=== PATIENT | female | born 1955 | race Caucasian/White ===

== ENCOUNTER 2017-09-28 06:41 | Inpatient (IN) ==
--- NOTE | 2017-09-27 21:30 | Discharge Summary ---
<MaryMini E - Last Filed: 09/28/17 08:11> Date of Encounter: 09/28/17 - Discharge Diagnosis (1) Status post total hip replacement, right Priority: Primary Status: Acute (2) Arthritis of right hip Priority: Primary Status: Chronic (3) Anxiety Priority: Secondary Status: Chronic (4) History of skin cancer Priority: Secondary Status: Chronic (5) GERD (gastroesophageal reflux disease) Priority: Secondary Status: Chronic Qualifiers: Esophagitis presence: esophagitis presence not specified Qualified Code(s) : K21.9 - Gastro-esophageal reflux disease without esophagitis (6) Tobacco dependence Priority: Secondary Status: Chronic - Hospital Course Hospital course: Ms. Olvera is a 62 year old female - Time Spent with Patient Total time spent providing and/or coordinating discharge services: - Discharge Medications Home Medications: OxyCODONE Immed Rel [Roxicodone 5 MG] 5 mg PO Q6HR PRN 7 Days #28 tablet [Rx] Amitriptyline HCl 75 mg PO HS 09/28/17 [History] Apixaban [Eliquis] 2.5 mg PO BID 35 Days #70 tablet 09/28/17 [Rx] Cholecalciferol (D-3) [Vitamin D] 1,000 unit PO HS 09/28/17 [History] Duloxetine HCl [Cymbalta] 60 mg PO HS 09/28/17 [History] Naproxen [EC-Naprosyn] 500 mg PO Q12H PRN 09/28/17 [History] Omeprazole [PriLOSEC] 20 mg PO HS 09/28/17 [History] Potassium Gluconate 99 mg PO HS 09/28/17 [History] Allergies/Adverse Reactions: 3 Allergy/AdvReac Type Severity Reaction Status Date / Time aspirin AdvReac See Verified 09/28/17 07:31 Comments Primary care physician: Deny Javed MD - Patient Status Disposition: Home, Self-Care Condition: Good - Discharge Instructions Follow Up With: Deny Javed MD [Primary Care Provider] - Additional Instructions: Discharge Instructions: Total Hip Replacement Please call [facility] ([phone]), your Primary Care Physician, or report to the Emergency Room if you have any of the following symptoms: Nausea, vomiting, fever greater that 101.5, swelling, chest pain, shortness of breath, increased pain/redness/drainage/odor for your incision site, numbness/ tingling, or any other concerning symptoms. ACTIVITY:Weight-bearing as tolerated for 8 weeks with hip dislocation precautions that physical therapy taught you. You may progress as tolerated under the guidance of your physical therapist. You do not need to sleep with a pillow between your legs. You can also seep on the operative side or on your stomach. MEDICATIONS: Upon discharge resume your home medications. Take all the medications as prescribed. Take a stool softener if taking narcotic pain medications. Stool softeners are only effective if you drink enough fluids. Drink 6-8 glass of water or fluids a day, unless this is not allowed for another health problem. Despite using stool softeners, if you haven't had a bowel movement in 3 days, please switch to a gentle laxative. Gentle laxatives are sold over the counter. You should have a bowel movement within 24 hours, if not call the office. You will be discharged from the hospital with a prescription for pain medication. You are encouraged to decrease the use of narcotic pain medication as tolerated. Should you require a refill, please call the office. [facility] prescribes narcotic pain medication for only 4-6 weeks after surgery. If you require pain medication beyond this time period, you may be referred to your Primary Care Physician or to the Pain Clinic for further evaluation. Plan ahead for refills on pain medication as many narcotics either need to be picked up at the office or mailed. It is best to call 48-72 hours in advance of needing a prescription refill so you don't run out of medication. To help control the post-operative pain, you may take NSAIDs (Aleve,Advil, Motrin, ibuprofen, naprosyn) or Tylenol as prescribed on the bottle in addition to the pain medication. ANTICOAGULATION (blood thinners): Continue your Aspirin, Lovenox or Coumadin as prescribed to help prevent a blood clot in the leg or in the lungs. As long as your incision remains dry and you tolerate the NSAIDs (Aleve, Advil, Motrin, Ibuprofen, Naprosyn), it is OK to use the NSAIDS while you are taking your anticoagulation medication. Should your incision start to drain, stop the NSAID and contact our office. Common symptoms of blood clot in the legs include: localized pain, swelling, calf tenderness, redness or discoloration of the skin. Blood clot in the lung symptoms include: shortness of breath, rapid pulse, sweating, and chest pain that worsens with deep breathing, coughing up blood, lightheadedness, feelings of anxiety. If you experience any of these symptoms notify your physician immediately, go to the emergency room, or if having trouble breathing, call 911. WOUND CARE: Leave the dressing on for 7 to 10days. You may change the dressing if it is saturated greater than 50%. Do not get the dressing wet at anytime. Wash your hands with antibacterial soap, rinse and dry prior to any wound care. If you have maria del carmen the visiting nurse or rehab facility can remove the stapes 10-14 days after surgery and place steri-strips across the wound. Leave the steri-strips in place until they fall off on their own. You may let water from the shower run on top of the steri-strips. If you do not have a visiting nurse or rehab facility, you will need to return to the office at 10-14 days for the maria del carmen to be removed. If you have itching or redness around the dressing call the office. FOLLOW-UP: Please follow up with your surgeon in the orthopedic clinic in 6 weeks from the day of surgery. If you have maria del carmen that need to be removed, you will need to come back to the office in 10-14 days from the day of surgery. <Anthony Perez - Last Filed: 09/30/17 11:46> Orders not resulted at time of discharge: Pending orders 09/28/17 01:00 XR hip complete RT [XR] Routine Hemoglobin and Hematocrit [HEME] Routine Date of Encounter: 09/30/17 Time of Encounter: 11:46 - Discharge Diagnosis (1) Anxiety Priority: Secondary Status: Chronic (2) Arthritis of right hip Priority: Primary Status: Chronic (3) GERD (gastroesophageal reflux disease) Priority: Secondary Status: Chronic Qualifiers: Esophagitis presence: esophagitis presence not specified Qualified Code(s) : K21.9 - Gastro-esophageal reflux disease without esophagitis (4) History of skin cancer Priority: Secondary Status: Chronic (5) Status post total hip replacement, right Priority: Primary Status: Acute (6) Tobacco dependence Priority: Secondary Status: Chronic (7) Acute blood loss anemia Priority: Primary Status: Acute - Hospital Course Hospital course: Ms. Olvera is a 62 year old female Status post right total hip replacement The patient had an uneventful postoperative course. They received antibiotics and physical therapy and were discharged in stable condition. There will follow -up in the office in 2 weeks. - Time Spent with Patient Total time spent providing and/or coordinating discharge services: Primary care physician: Deny Javed MD - Patient Status Functional capacity at discharge: uses cane/walker Overall status at discharge: patient is progressing back to baseline
--- NOTE | 2017-09-27 21:32 | Physician Discharge Referral ---
Home Health/Hosp Referral Info Transfer to: Home Health Attending Provider: Dr Perez - Diagnosis (1) Status post total hip replacement, right Priority: Primary Status: Acute (2) Arthritis of right hip Priority: Primary Status: Chronic (3) Anxiety Priority: Secondary Status: Chronic (4) History of skin cancer Priority: Secondary Status: Chronic (5) GERD (gastroesophageal reflux disease) Priority: Secondary Status: Chronic (6) Tobacco dependence Priority: Secondary Status: Chronic - Respiratory Orders Smoking Cessation: Smoking cessation has been advised. For more information, call the [place] Tobacco Quit Line at 7-940-JDZN-NOW. - Dressing/Wound Care Site: right hip Type of Dressing/Treatments w/Frequency: Opsite placed. Keep dressing intact until first follow up appointment. If greater than 50% saturated, notify office, remove dressing and place appropriate dressing back in place. Leave Zipline intact. Opsite dressing is water resistant, not water-proof. OK to shower, but do not get dressing wet. - Diet/Nutrition Diet/Nutrition Orders: Regular - Activity Activity Orders: Up ad jaren, Ambulate, Chair, Walker Activity: List: Total Hip replacement Precautions Apply cold therapy 3-6x/day for 20 minutes at a time. Encourage ambulation throughout the day and incentive spirometer 10x/hour. Elevate affected extremity as tolerated. Brace: Wear hip abduction pillow when laying/sleeping - Services Needed Following services are medically necessary services: Nursing, Home Health Aide, Physical Therapy, Occupational Therapy - Transfer Medications Prescriptions: OxyCODONE Immed Rel [Roxicodone 5 MG] 5 mg PO Q6HR PRN 7 Days #28 tablet PRN Reason: Severe Pain Home Medications: Cyclobenzaprine [Flexeril] 10 mg PO TID #15 tablet 03/17/17 [Rx] Meloxicam 03/17/17 [History] Omeprazole 03/17/17 [History] Potassium 03/17/17 [History] methylPREDNISolone [Medrol] 4 mg PO TAPER #21 tablet 03/17/17 [Rx] OxyCODONE Immed Rel [Roxicodone 5 MG] 5 mg PO Q6HR PRN 7 Days #28 tablet [Rx] Allergies/Adverse Reactions: 3 Allergy/AdvReac Type Severity Reaction Status Date / Time aspirin Allergy See Verified 09/18/17 15:29 Comments Certification: Further, I certify that my clinical findings support that this patient is homebound (i.e. absences from home require considerable and taxing effort and are for medical reasons or mandaen services or infrequently or short duration when for other reasons) because: Homebound Reason: Post-surgery restriction and or conditions limit ability to leave home Attestation: My signature below is to certify that this patient is under my care and that I, or nurse practitioner, or a physician fire control assistant working with me, has a face-to- face encounter with this patient.
--- NOTE | 2017-09-28 06:49 | History & Physical Report ---
Date of Encounter: 09/28/17 Time of Encounter: 06:49 24 Hour HP Update - Instructions Instructions: If the History and Physical is less than 30 days old and was completed prior to A.M. admission and or procedure and has NOT been updated on calendar day of procedure please complete this update prior to performing procedure. - Update Patient reports changes in Medical Condition: No Changes in examination, assessment, or condition: No Changes in Medication: No Preop tests/diagnostics Reviewed: Yes Surgery Remains Indicated: Yes Consent for Planned Operative Procedure(s) Verified: Yes - Pre-Operative Checklist Preoperative Checklist Indicated: No Prophylactic Antibiotic Ordered: Yes Is VTE Prophylaxis Indicated?: Yes
[2017-09-28] MEDS ORDERED: CeFAZolin Syr 2,000MG/20 ML 2,000 MG/20 ML SYRINGE IVPB ONE (07:03)
[2017-09-28] MEDS ORDERED: Albuterol 2.5 MG/3 ML NEBULIZER IH ONE (07:03)
[2017-09-28] MEDS ORDERED: Lidocaine -MPF 1% 2 ML VIAL ID ONE (07:03)
[2017-09-28] MEDS ORDERED: Acetaminophen IV 1,000 MG/100 ML INFUS..BTL IVPB ONE (07:04)
--- NOTE | 2017-09-28 07:09 | Anesthesia Evaluation PreOp ---
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) Other Medical History: Denies Any Significant HX, GERD (well controlled) Anesthesia History: No Prior Anesthetic Complications, Past Anesthesia (R neck gland removal, skin ca) Alcohol Use: none Drug use: none Medications and Allergies Cyclobenzaprine [Flexeril] 10 mg PO TID #15 tablet 03/17/17 [Rx] Meloxicam 03/17/17 [History] Omeprazole 03/17/17 [History] Potassium 03/17/17 [History] methylPREDNISolone [Medrol] 4 mg PO TAPER #21 tablet 03/17/17 [Rx] OxyCODONE Immed Rel [Roxicodone 5 MG] 5 mg PO Q6HR PRN 7 Days #28 tablet [Rx] 3 Allergy/AdvReac Type Severity Reaction Status Date / Time aspirin Allergy See Verified 09/18/17 15:29 Comments - Meds/Allergy Pre-op Review Medications Reviewed: Yes Allergies Reviewed: Yes Beta Blockers on Current Med List: No Anesthesia Results - Labs Laboratory Tests 09/18/17 09/18/17 09/18/17 15:46 15:46 15:46 WBC 7.7 Hgb 11.8 Hct 37.6 Plt Count 307 PT 11.1 INR 1.0 APTT 31.0 Sodium 139 Potassium 4.2 Chloride 109 H Carbon Dioxide 25 BUN 14 Creatinine 0.73 - Imaging EKG: report reviewed (SR) Anesthesia Exam O2 Sat Height 1.57 m Height 1.57 m Weight 70.76 kg Weight 70.76 kg O2 Sat by Pulse Oximetry 94 Vital Signs Temp Pulse Resp BP Pulse Ox 98.5 F 83 18 123/76 94 09/28/17 07:04 09/28/17 07:04 09/28/17 07:04 09/28/17 07:04 09/28/17 07:04 Height: 62 Weight: 156lbs NPO (# of Hours): >8 Pain Scale: 8 - HEENT Pupil (Motor): Pupils equal, EOMI Mallampati: III Teeth: Poor dentition Oral Opening: Greater than 3 - 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
[2017-09-28] MEDS ORDERED: Ringers Solution, Lactated 1,000 ML IVC SCH ×2 (07:15→11:07)
[2017-09-28] MEDS ORDERED: Ethanol\\Acetic Acid\\Na Ace\\Ben 1,000 ML IRRIG.SOLN IR ONE (07:18)
[2017-09-28] MEDS ORDERED: Morphine Sulfate/PF 5mg/10mL Vial ONE (08:02)
[2017-09-28] MEDS ORDERED: Lidocaine -MPF 2% 2 ML VIAL ONE ×2 (08:20→09:34)
--- NOTE | 2017-09-28 08:47 | Anesthesia Procedures ---
Date of Encounter: 09/28/17 Time of Encounter: 08:45 Procedures: Anesthesia - Epidural/Spinal Patient ID/Chart reviewed: Yes Patient examined: Yes Consent Obtained: Yes Supplemental Oxygen: Nasal Cannula Supplemental Oxygen Rate (L/min): 3 Sedation: Versed (mg): 4 Site Prep: Aseptic Technique, Sterile prep and drape, Povidone-Iodine 1% Patient position: upright Local Anesthetic: Lidocaine 1% Amount of Local Anesthetic used: 3 Interspace Used: L4-L5 Blood: No CSF: Yes Paresthesia: No Spinal Needle Gauge: 25 Spinal Dose: 2mL 0.5% bupi + 250mcg PF morphine + 15mcg fentany Procedure: successful on 1st attempt Vitals + FHT's: please see Bibi TELLEZ's electronic record for VS entry
[2017-09-28] MEDS ORDERED: *HR* PHENYLEPHRINE 1,000 MCG/10 ML SYRINGE IVP ONE ×2 (09:06→10:00)
[2017-09-28] MEDS ORDERED: *HR* Propofol 200 MG/20 ML VIAL IVP ONE ×2 (09:30→09:34)
[2017-09-28] MEDS ORDERED: *HR* Midazolam HCl 2 MG/2 ML VIAL ONE (09:34)
[2017-09-28] MEDS ORDERED: *HR* FentaNYL (PF) 100 MCG/2 ML VIAL ONE (09:34)
[2017-09-28] MEDS ORDERED: Ondansetron 4 MG/2 ML VIAL IVP PRN ×2 (09:38→11:07)
--- NOTE | 2017-09-28 09:44 | Orthopedic Operative Note ---
Date of procedure: 09/28/17 Pre-op diagnosis: Right hip arthritis Post-op diagnosis: same Procedure: Procedure: Right Total Hip Replacment robotic-assisted Estimated blood loss: 200 cc Hardware: Metal and polyethylene replacement. Mallie DM Cup: 56 cup Femoral size 6 stem Head: +12 head with Radha Procedural Notes: Grade 4 arthritic changes femoral head acetabular socket, procedure performed with robotic assistance. 5 mm shorter preoperatively on operative leg measured by CT scan Operative procedure: The patient was brought to the operating room and placed on the operating room table. After general anesthesia was administered the patient was placed in the lateral decubitus position with the operative leg up. All pressure points were padded appropriately and the head was stabilized in the neutral position. The operative extremity was prepped and draped in the sterile surgical fashion patient received IV antibiotic prior to skin incision. 3 Steinmann pins were placed in the iliac crest 3 cm proximal to the anterior superior iliac spine this was for the robotic-assisted sensor. This was done through a small 2 cm incision. A standard posterior approach is made to the operative hip, the incision was made through the skin and subcutaneous tissue hemostasis was obtained with Bovie cautery. Using careful sharp dissection the fascia was identified and incised exposing the external rotators. The femoral checkpoint was placed leg length was measured at this time utilizing robotic assistance. The external rotators were released off the greater trochanter and tagged with # 2 FiberWire suture. The capsule was T'd open and the hip was brought into internal rotation. Patient noted to have grade 4 arthritic changes femoral head. The femoral neck cut was made at the appropriate level roughly 10 mm proximal to the lesser trochanter aced on preoperative templating. An anterior capsulotomy was performed for the anterior retractor. Soft tissues removed from the acetabulum. Patient noted to have grade 4 arthritic changes acetabulum. The acetabulum checkpoint was placed confirmed. The acetabulum was then mapped with robotic assistance. Based on the preoperative plan the acetabulum was reamed in one step with a 55 reamer. The 56 acetabulum was impacted with robotic assistance and 40 degrees of abduction and 11 degrees of anteversion. The hip was brought back in to internal rotation and prepared with the box spring frame builder followed by the canal finder followed by the reaming process to a size 6/ 7 broaching process in 20 degrees anteversion. It was broached up to the appropriate size 6. Trial reduction revealed leg lengths close to normal. The femoral implant was impacted in place in 20 degrees of anteversion. Trial reduction found the hip to be stable with 12 head and Radah. The trials were removed and the real implants were impacted in place. The hip was reduced, patient had robotic confirmed leg length of 1 mm longer than the contralateral side. The hip had excellent stability with forward flexion to 90 degrees adduction of 30 degrees and internal rotation of 60 degrees. The hip had no shuck. The hips after 2 minutes with a antibacterial solution. It was irrigated out with 2 L of pulse irrigation. The checkpoints were removed, Steinmann pins were removed. The hip was closed by the PA. The deep tissue was irrigated and closed deep with #1 PDS suture superficially with 0 PDS suture and skin was closed with Dermabond and zip tie. The patient was placed in a sterile dressing and abduction pillow. The patient was extubated and transferred to the recovery room in stable condition. Anesthesia: GETA Surgeon: Anthony Perez Was there an malt specifications control assistant present: No Estimated blood loss (cc): 200 Condition: stable Disposition: PACU
[2017-09-28] MEDS ORDERED: EPHEDrine 50 MG/ML VIAL ONE (09:45)
[2017-09-28] MEDS ORDERED: *HR* HYDROmorphone (PF) 1 MG/ML SYRINGE IVP PRN (10:34)
[2017-09-28] MEDS ORDERED: *HR* Morphine 2 MG/ML SYRINGE IVP PRN ×2 (10:34→11:07)
[2017-09-28] MEDS ORDERED: *HR* OxyCODONE/APAP 10/325 TABLET PO PRN ×2 (10:37→11:07)
[2017-09-28] MEDS ORDERED: *HR* OxyCODONE/APAP 5/325 TABLET PO PRN ×3 (10:37→11:07)
[2017-09-28 10:38] LABS: Hematocrit 37.3 % (35.3-44.9); Hemoglobin 12.1 g/dL (11.5-15.4)
--- NOTE | 2017-09-28 10:41 | Anesthesia Evaluation Post Op ---
Date of Encounter: 09/28/17 Time of Encounter: 10:41 - Vital Signs Vital Signs: vss - Lungs Lungs: Clear Ascult./Percussion - Airway Airway: Non-obstructed - Cardiovascular Baseline Rhythm - Mental Status Mental Status: Alert & Oriented, Answers Appropriately - Pain Pain Scale used: Yogi (Faces) - Nausea Vomiting Nausea Vomiting: Not Present - Hydration Hydration: Ice chips - Discharge PostOp Status: Transfer Patient to floor
[2017-09-28] MEDS ORDERED: traMADol 50 MG TABLET PO PRN (11:07)
[2017-09-28] MEDS ORDERED: MOM Conc 10 ML UD.LIQ PO PRN (11:07)
[2017-09-28] MEDS ORDERED: Temazepam 15 MG CAPSULE PO PRN (11:07)
[2017-09-28] MEDS ORDERED: Sennosides 8.6 MG TABLET PO PRN (11:07)
[2017-09-28] MEDS ORDERED: Naloxone 0.4 MG/ML INJ IVP PRN (11:07)
[2017-09-28] MEDS: Multivit/Ca/Min/Fe/FA 1 TAB TABLET PO SCH (15:03)
[2017-09-28] MEDS: Ascorbic Acid 500 MG TABLET PO SCH ×2 (15:04→18:04)
[2017-09-28] MEDS ORDERED: *HR* Nalbuphine 20 MG/ML AMPUL IVP PRN (15:29)
[2017-09-28] MEDS: ceFAZolin 2,000 MG in D5% in Water 100 ML IVPB SCH ×2 (16:25→23:52)
[2017-09-28] MEDS ORDERED: *HR* Enoxaparin 30 MG/0.3 ML SYRINGE SQ SCH (18:00)
[2017-09-28] MEDS: *HR* Enoxaparin 30 MG/0.3 ML SYRINGE SQ SCH (18:02)
[2017-09-28] MEDS ORDERED: CloNIDine Patch 0.1 MG PATCH (WEEKLY) TD ONE (19:13)
[2017-09-28] MEDS: Cholecalciferol (D-3) 1,000 UNIT TABLET PO SCH (21:09)
[2017-09-28] MEDS: (Potassium Gluconate [Potassium Gluconate] 99 MG) PO SCH (21:10)
[2017-09-29 05:36] LABS: Hematocrit 30.3 % (35.3-44.9)
[2017-09-29 05:41] LABS: Hemoglobin 9.7 g/dL (11.5-15.4)
[2017-09-29 05:54] LABS: BUN/Creatinine Ratio 18 (6-26); Blood Urea Nitrogen 14 mg/dL (8-23); Calcium 8.5 mg/dL (8.6-10.3); Carbon Dioxide 25 mEq/L (23-29); Chloride 101 mEq/L (98-107); Glucose 113 mg/dL (70-105); Osmolality,Calculated 273 (280-300); Potassium 4.3 mEq/L (3.5-5.1); Sodium 131 mEq/L (136-145); eGFR For African Americans > 60 (> 60); eGFR For Non-African Americans > 60 (> 60)
--- NOTE | 2017-09-29 06:34 | Orthopedics Progress Note ---
Date of Encounter: 09/29/17 Time of Encounter: 06:34 - Assessment and Plan (1) Anxiety Current Visit: No Status: Chronic (2) Arthritis of right hip Current Visit: No Status: Chronic (3) GERD (gastroesophageal reflux disease) Current Visit: No Status: Chronic Qualifiers: Esophagitis presence: esophagitis presence not specified Qualified Code(s) : K21.9 - Gastro-esophageal reflux disease without esophagitis (4) History of skin cancer Current Visit: No Status: Chronic (5) Status post total hip replacement, right Current Visit: No Status: Acute (6) Tobacco dependence Current Visit: No Status: Chronic Subjective Interval history: Patient was seen this morning doing well without complaints. Afebrile vital signs stable. Operative extremity: Neurovascularly intact Dressing clean dry and intact Calves nontender Assessment and plan: Continue with postoperative care Hematocrit 30 Objective Vital signs: Vital Signs Temp Pulse Resp BP Pulse Ox 09/29/17 02:43 98.6 F 76 18 118/67 95 09/29/17 00:10 98.2 F 78 18 105/60 95 09/28/17 18:38 99.0 F 81 18 110/66 94 09/28/17 15:26 98.2 F 83 16 111/56 97 09/28/17 15:13 98.2 F 82 16 99/48 92 09/28/17 12:41 93 09/28/17 12:02 83 94/55 93 09/28/17 11:33 97.2 F L 72 14 115/79 97 09/28/17 11:32 97.1 F L 81 16 111/66 93 09/28/17 11:18 96 09/28/17 10:37 97.4 F L 72 18 116/48 96 09/28/17 10:26 72 18 112/64 94 09/28/17 10:16 72 16 92/63 93 09/28/17 10:06 97.9 F 74 16 95/53 93 09/28/17 08:49 70 16 95/53 97 09/28/17 08:46 71 16 102/57 97 09/28/17 08:43 72 16 101/51 96 09/28/17 08:40 71 16 108/58 96 09/28/17 08:37 74 16 114/51 94 09/28/17 08:34 72 16 116/58 95 09/28/17 08:31 72 16 119/64 95 09/28/17 08:28 73 14 122/64 95 09/28/17 08:25 71 16 119/57 94 09/28/17 08:08 79 18 131/60 95 09/28/17 07:10 18 94 09/28/17 07:04 98.5 F 83 18 123/76 94 Intake and Output 09/28/17 09/28/17 09/29/17 15:59 23:59 07:59 Intake Total 100 / 100 300 / 300 Output Total 200 / 200 0 / 0 550 / 550 Balance -200 / -200 100 / 100 -250 / -250 Intake: IV Fluids 100 / 100 Ancef 2,000 MG In Dextrose 5% 100 / 100 100 ML @ 200 mls/hr IVPB Q8HR WILL Rx#:[id number] Oral 0 / 0 300 / 300 Output: Urine 0 / 0 550 / 550 Estimated Blood Loss 200 / 200 Other: # Voids 1 1 - Labs CBC & BMP: 09/29/17 05:00 09/29/17 05:00 Labs: Abnormal lab results Hgb 9.7 g/dL (11.5-15.4) L D 09/29/17 05:00 Hct 30.3 % (35.3-44.9) L 09/29/17 05:00 Sodium 131 mEq/L (136-145) L 09/29/17 05:00 Glucose 113 mg/dL (70-105) H 09/29/17 05:00 Calculated Osmolality 273 (280-300) L 09/29/17 05:00 Calcium 8.5 mg/dL (8.6-10.3) L 09/29/17 05:00 - VTE Documentation of Mechanical Device: Venous foot pump, device Consult Discharge Plan - Plan Referrals: Ucci,Deny Baldwin MD [Primary Care Provider] -
[2017-09-29] MEDS: *HR* OxyCODONE Immed Rel 5 MG TABLET PO PRN ×4 (06:44→21:00)
[2017-09-29] MEDS: *HR* Enoxaparin 30 MG/0.3 ML SYRINGE SQ SCH ×2 (06:44→15:59)
[2017-09-29] MEDS: Ascorbic Acid 500 MG TABLET PO SCH ×2 (09:32→15:59)
[2017-09-29] MEDS: Multivit/Ca/Min/Fe/FA 1 TAB TABLET PO SCH (09:32)
--- NOTE | 2017-09-29 11:46 | Event Note ---
Date of Encounter: 09/29/17 Time of Encounter: 12:50 PCR- POD#1 R THR robotic 09/28/17 Chris PCR - Patient seen at bedside. Labwork and medications reviewed. Pain control: Adequate Participating in PT. All questions and concerns addressed. Educated on use of incentive spirometer, ambulation, and hydration. Patient educated on post-operative restrictions and care. Addressed: back pain - patient states she had terrible spasms on Thursday prior to surgery and states she presented for surgery with a very sore back already. She states her back pain is far more intense than her hip pain. - Cyclobenzaprine and Lidoderm added for patient relief. D/C plan: Home with HH vs OP therapy.
[2017-09-29] MEDS ORDERED: Loratadine 10 MG TABLET PO SCH (16:15)
[2017-09-29] MEDS: Cholecalciferol (D-3) 1,000 UNIT TABLET PO SCH (21:00)
[2017-09-29] MEDS: (Potassium Gluconate [Potassium Gluconate] 99 MG) PO SCH (21:25)
[2017-09-30] MEDS: *HR* OxyCODONE Immed Rel 5 MG TABLET PO PRN ×4 (01:38→16:07)
[2017-09-30 02:15] LABS: Hematocrit 27.5 % (35.3-44.9); Hemoglobin 9.1 g/dL (11.5-15.4)
[2017-09-30 02:34] LABS: BUN/Creatinine Ratio 14 (6-26); Blood Urea Nitrogen 9 mg/dL (8-23); Calcium 8.2 mg/dL (8.6-10.3); Carbon Dioxide 28 mEq/L (23-29); Chloride 103 mEq/L (98-107); Glucose 124 mg/dL (70-105); Osmolality,Calculated 276 (280-300); Potassium 3.8 mEq/L (3.5-5.1); Sodium 133 mEq/L (136-145); eGFR For African Americans > 60 (> 60); eGFR For Non-African Americans > 60 (> 60)
[2017-09-30] MEDS: *HR* Enoxaparin 30 MG/0.3 ML SYRINGE SQ SCH (06:24)
[2017-09-30] MEDS: Ascorbic Acid 500 MG TABLET PO SCH (07:32)
[2017-09-30] MEDS: Multivit/Ca/Min/Fe/FA 1 TAB TABLET PO SCH (07:32)
--- NOTE | 2017-09-30 08:31 | Orthopedics Progress Note ---
Date of Encounter: 09/30/17 Time of Encounter: 08:31 - Assessment and Plan (1) Anxiety Current Visit: No Status: Chronic (2) Arthritis of right hip Current Visit: No Status: Chronic (3) GERD (gastroesophageal reflux disease) Current Visit: No Status: Chronic Qualifiers: Esophagitis presence: esophagitis presence not specified Qualified Code(s) : K21.9 - Gastro-esophageal reflux disease without esophagitis (4) History of skin cancer Current Visit: No Status: Chronic (5) Status post total hip replacement, right Current Visit: No Status: Acute (6) Tobacco dependence Current Visit: No Status: Chronic (7) Acute blood loss anemia Current Visit: Yes Status: Acute Subjective Interval history: Patient was seen this morning doing well without complaints. Afebrile vital signs stable. Operative extremity: Neurovascularly intact Dressing clean dry and intact Calves nontender Assessment and plan: Continue with postoperative care Hemoglobin 9.1 Objective Vital signs: Vital Signs Temp Pulse Resp BP Pulse Ox 09/30/17 07:00 98.9 F 87 16 104/68 95 09/29/17 23:30 99.5 F 82 14 100/62 94 09/29/17 19:25 98.7 F 100 18 124/67 94 09/29/17 15:44 98.3 F 92 18 129/64 94 09/29/17 12:17 98.3 F 93 18 117/67 89 Intake and Output 09/29/17 09/30/17 09/30/17 23:59 07:59 15:59 Intake Total 950 / 950 Output Total 500 / 500 Balance 450 / 450 Intake: Oral 950 / 950 Output: Urine 500 / 500 - Labs CBC & BMP: 09/30/17 01:18 09/30/17 01:18 Labs: Abnormal lab results Hgb 9.1 g/dL (11.5-15.4) L 09/30/17 01:18 Hct 27.5 % (35.3-44.9) L 09/30/17 01:18 Sodium 133 mEq/L (136-145) L 09/30/17 01:18 Glucose 124 mg/dL (70-105) H 09/30/17 01:18 Calculated Osmolality 276 (280-300) L 09/30/17 01:18 Calcium 8.2 mg/dL (8.6-10.3) L 09/30/17 01:18 - VTE Documentation of Mechanical Device: Venous foot pump, device Consult Discharge Plan - Plan Referrals: Deny Javed MD [Primary Care Provider] -
[2017-09-30 10:23] VITALS: BP 101/61
== END 2017-09-30 16:16 | disposition home or self-care (01) | DRG 470 ==
LOC: SAMDAY 06:41 → 3NENU 10:39
PROVIDERS: ADMIT Orthopaedic Surgery; ATTEND Orthopaedic Surgery

== ENCOUNTER 2017-11-02 14:32 | Inpatient (IN) ==
--- NOTE | 2017-11-01 22:59 | Discharge Summary ---
<Yady Mak - Last Filed: 11/01/17 22:57> Date of Encounter: 11/01/17 - Discharge Diagnosis (1) Arthritis of left hip Priority: Primary Status: Acute (2) History of total left hip arthroplasty Priority: Primary Status: Acute (3) Anxiety Priority: Secondary Status: Chronic (4) GERD (gastroesophageal reflux disease) Priority: Secondary Status: Chronic Qualifiers: Esophagitis presence: esophagitis presence not specified Qualified Code(s) : K21.9 - Gastro-esophageal reflux disease without esophagitis (5) Tobacco dependence Priority: Secondary Status: Chronic - Hospital Course Hospital course: Ms. Olvera is a 62 year old female - Time Spent with Patient Total time spent providing and/or coordinating discharge services: - Discharge Medications Home Medications: Amitriptyline HCl 75 mg PO HS 09/28/17 [History] Cholecalciferol (D-3) [Vitamin D] 1,000 unit PO HS 09/28/17 [History] Omeprazole [PriLOSEC] 20 mg PO HS 09/28/17 [History] Potassium Gluconate 99 mg PO HS 09/28/17 [History] Aspirin Enteric Coated [Aspirin EC] 325 mg PO BID #20 tablet. 11/01/17 [Rx] OxyCODONE Immed Rel [Roxicodone 5 MG] 5 mg PO Q6HR PRN 7 Days #28 tablet [Rx] Ibuprofen [Motrin] 600 mg PO TID PRN 11/02/17 [History] Allergies/Adverse Reactions: 3 Allergy/AdvReac Type Severity Reaction Status Date / Time No Known Allergies Allergy Verified 11/02/17 21:16 Primary care physician: Deny Javed MD - Patient Status Disposition: Home, Self-Care Condition: Good - Discharge Instructions Follow Up With: Yady Mak PAC [Physician Pipe Stripper] - 11/12/17 8:00 am Deny Javed MD [Primary Care Provider] - Additional Instructions: Discharge Instructions: Total Hip Replacement Please call [facility] ([phone]), your Primary Care Physician, or report to the Emergency Room if you have any of the following symptoms: Nausea, vomiting, fever greater that 101.5, swelling, chest pain, shortness of breath, increased pain/redness/drainage/odor for your incision site, numbness/ tingling, or any other concerning symptoms. ACTIVITY:Weight-bearing as tolerated for 8 weeks with hip dislocation precautions that physical therapy taught you. You may progress as tolerated under the guidance of your physical therapist. You do not need to sleep with a pillow between your legs. You can also seep on the operative side or on your stomach. MEDICATIONS: Upon discharge resume your home medications. Take all the medications as prescribed. Take a stool softener if taking narcotic pain medications. Stool softeners are only effective if you drink enough fluids. Drink 6-8 glass of water or fluids a day, unless this is not allowed for another health problem. Despite using stool softeners, if you haven't had a bowel movement in 3 days, please switch to a gentle laxative. Gentle laxatives are sold over the counter. You should have a bowel movement within 24 hours, if not call the office. You will be discharged from the hospital with a prescription for pain medication. You are encouraged to decrease the use of narcotic pain medication as tolerated. Should you require a refill, please call the office. [facility] prescribes narcotic pain medication for only 4-6 weeks after surgery. If you require pain medication beyond this time period, you may be referred to your Primary Care Physician or to the Pain Clinic for further evaluation. Plan ahead for refills on pain medication as many narcotics either need to be picked up at the office or mailed. It is best to call 48-72 hours in advance of needing a prescription refill so you don't run out of medication. To help control the post-operative pain, you may take NSAIDs (Aleve,Advil, Motrin, ibuprofen, naprosyn) or Tylenol as prescribed on the bottle in addition to the pain medication. ANTICOAGULATION (blood thinners): Continue your Aspirin, Lovenox or Coumadin as prescribed to help prevent a blood clot in the leg or in the lungs. As long as your incision remains dry and you tolerate the NSAIDs (Aleve, Advil, Motrin, Ibuprofen, Naprosyn), it is OK to use the NSAIDS while you are taking your anticoagulation medication. Should your incision start to drain, stop the NSAID and contact our office. Common symptoms of blood clot in the legs include: localized pain, swelling, calf tenderness, redness or discoloration of the skin. Blood clot in the lung symptoms include: shortness of breath, rapid pulse, sweating, and chest pain that worsens with deep breathing, coughing up blood, lightheadedness, feelings of anxiety. If you experience any of these symptoms notify your physician immediately, go to the emergency room, or if having trouble breathing, call 911. WOUND CARE: Leave the dressing on for 7 to 10days. You may change the dressing if it is saturated greater than 50%. Do not get the dressing wet at anytime. Wash your hands with antibacterial soap, rinse and dry prior to any wound care. If you have maria del carmen the visiting nurse or rehab facility can remove the stapes 10-14 days after surgery and place steri-strips across the wound. Leave the steri-strips in place until they fall off on their own. You may let water from the shower run on top of the steri-strips. If you do not have a visiting nurse or rehab facility, you will need to return to the office at 10-14 days for the maria del carmen to be removed. If you have itching or redness around the dressing call the office. FOLLOW-UP: Please follow up with your surgeon in the orthopedic clinic in 6 weeks from the day of surgery. If you have maria del carmen that need to be removed, you will need to come back to the office in 10-14 days from the day of surgery. <Anthony Perez - Last Filed: 11/05/17 10:52> Orders not resulted at time of discharge: Pending orders 11/02/17 00:01 XR hip complete LT [XR] Routine H/H [Hemoglobin and Hematocrit] [HEME] Routine 11/02/17 14:49 US anesthesia pain block [US] Routine Date of Encounter: 11/05/17 Time of Encounter: 10:52 - Discharge Diagnosis (1) Anxiety Priority: Secondary Status: Chronic (2) History of skin cancer Priority: Secondary Status: Chronic (3) GERD (gastroesophageal reflux disease) Priority: Secondary Status: Chronic Qualifiers: Esophagitis presence: esophagitis presence not specified Qualified Code(s) : K21.9 - Gastro-esophageal reflux disease without esophagitis (4) Tobacco dependence Priority: Secondary Status: Chronic (5) Status post total hip replacement, right Priority: Secondary Status: Acute (6) Arthritis of left hip Priority: Primary Status: Chronic (7) History of total left hip arthroplasty Priority: Primary Status: Acute (8) Acute blood loss anemia Priority: Primary Status: Acute - Hospital Course Hospital course: Ms. Olvera is a 62 year old female Status post total hip replacement The patient had an uneventful postoperative course. They received antibiotics and physical therapy and were discharged in stable condition. There will follow -up in the office in 2 weeks. - Time Spent with Patient Total time spent providing and/or coordinating discharge services: Primary care physician: Deny Javed MD - Patient Status Functional capacity at discharge: uses cane/walker Overall status at discharge: patient is progressing back to baseline
--- NOTE | 2017-11-02 14:32 | Physician Discharge Referral ---
Home Health/Hosp Referral Info Transfer to: Home Health Attending Provider: Provider in Charge Post Discharge: PCP - Diagnosis (1) Arthritis of left hip Priority: Primary Status: Chronic (2) History of total left hip arthroplasty Priority: Primary Status: Acute (3) Anxiety Status: Chronic (4) GERD (gastroesophageal reflux disease) Status: Chronic (5) Tobacco dependence Status: Chronic - Respiratory Orders None Smoking Cessation: Smoking cessation has been advised. For more information, call the [place] Tobacco Quit Line at 0-790-IAUX-NOW. - Diet/Nutrition Diet/Nutrition Orders: Regular - Activity Activity Orders: Up ad jaren, Ambulate, Walker - Services Needed Following services are medically necessary services: Nursing, Home Health Aide, Physical Therapy, Occupational Therapy Home Care Orders: Rehab orders for total hip: Total Hip replacement Precautions Apply cold therapy 3-6x/day for 20 minutes at a time. Encourage ambulation throughout the day and incentive spirometer 10x/hour. Elevate affected extremity as tolerated. Brace: Wear hip abduction pillow when laying/sleeping Treatments: Opsite dressing, leave intact until first post-operative visit. If dressing becomes >50% saturated, contact office, remove dressing and place appropriate dressing in its place. Do not allow for dressing to get wet. Keyur in place, plan to remove at post-operative day #14-16. - Transfer Medications Home Medications: Amitriptyline HCl 75 mg PO HS 09/28/17 [History] Cholecalciferol (D-3) [Vitamin D] 1,000 unit PO HS 09/28/17 [History] Omeprazole [PriLOSEC] 20 mg PO HS 09/28/17 [History] Potassium Gluconate 99 mg PO HS 09/28/17 [History] Aspirin Enteric Coated [Aspirin EC] 325 mg PO BID #20 tablet. 11/01/17 [Rx] OxyCODONE Immed Rel [Roxicodone 5 MG] 5 mg PO Q6HR PRN 7 Days #28 tablet [Rx] Ibuprofen [Motrin] 600 mg PO TID PRN 11/02/17 [History] Allergies/Adverse Reactions: 3 Allergy/AdvReac Type Severity Reaction Status Date / Time No Known Allergies Allergy Verified 11/02/17 21:16 Certification: Further, I certify that my clinical findings support that this patient is homebound (i.e. absences from home require considerable and taxing effort and are for medical reasons or episcopal services or infrequently or short duration when for other reasons) because: Homebound Reason: Post-surgery restriction and or conditions limit ability to leave home Attestation: My signature below is to certify that this patient is under my care and that I, or nurse practitioner, or a physician's yard assistant working with me, has a face-to -face encounter with this patient.
[2017-11-02] MEDS ORDERED: Gabapentin 300 MG CAPSULE PO ONE (14:49)
[2017-11-02] MEDS ORDERED: Famotidine 20 MG/2 ML VIAL IVP ONE (14:49)
[2017-11-02] MEDS ORDERED: CeFAZolin Syr 2,000MG/20 ML 2,000 MG/20 ML SYRINGE IVPB ONE (14:54)
[2017-11-02] MEDS ORDERED: Albuterol 2.5 MG/3 ML NEBULIZER IH ONE (14:54)
[2017-11-02] MEDS ORDERED: Ringers Solution, Lactated 1,000 ML IVC SCH ×2 (15:00→21:16)
[2017-11-02] MEDS ORDERED: diazePAM 5 MG TABLET PO ONE (15:02)
--- NOTE | 2017-11-02 15:06 | Anesthesia Evaluation PreOp ---
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 History: Other (anxiety, depression) Other Medical History: GERD (well controlled) Anesthesia History: No Prior Anesthetic Complications, Past Anesthesia (R hip, R neck gland removal, removal skin ca) Alcohol Use: rarely Drug use: none Medications and Allergies Amitriptyline HCl 75 mg PO HS 09/28/17 [History] Apixaban [Eliquis] 2.5 mg PO BID 35 Days #70 tablet 09/28/17 [Rx] Cholecalciferol (D-3) [Vitamin D] 1,000 unit PO HS 09/28/17 [History] Duloxetine HCl [Cymbalta] 60 mg PO HS 09/28/17 [History] Naproxen [EC-Naprosyn] 500 mg PO Q12H PRN 09/28/17 [History] Omeprazole [PriLOSEC] 20 mg PO HS 09/28/17 [History] Potassium Gluconate 99 mg PO HS 09/28/17 [History] Cyclobenzaprine [Flexeril] 10 mg PO TID PRN 7 Days #21 tablet 09/30/17 [Rx] Aspirin Enteric Coated [Aspirin EC] 325 mg PO BID #20 tablet. 11/01/17 [Rx] OxyCODONE Immed Rel [Roxicodone 5 MG] 5 mg PO Q6HR PRN 7 Days #28 tablet [Rx] 3 Allergy/AdvReac Type Severity Reaction Status Date / Time aspirin AdvReac See Verified 09/28/17 07:31 Comments - Meds/Allergy Pre-op Review Medications Reviewed: Yes Allergies Reviewed: Yes Beta Blockers on Current Med List: No Anesthesia Results - Labs Laboratory Tests 10/29/17 10/29/17 10/29/17 14:25 14:25 14:25 WBC 6.5 Hgb 11.7 Hct 36.1 Plt Count 236 PT 10.5 INR 1.0 APTT 29.0 Sodium 138 Potassium 3.8 Chloride 107 Carbon Dioxide 24 BUN 20 Creatinine 0.74 - Imaging EKG: report reviewed (SR) Anesthesia Exam Height: 1.57m Weight: 156lbs NPO (# of Hours): >8 Pain Scale: 0 Pain Scale Used: Numeric (1 - 10) - HEENT Pupil (Motor): Pupils equal, EOMI Mallampati: III Teeth: Normal Oral Opening: Greater than 3 - GOLF BALL WINDER LOC: Oriented GOLF BALL WINDER Motor: Normal RUE, Normal LUE, Normal RLE, Normal LLE, Normal Face GOLF BALL WINDER Sensory: Normal: RUE, LUE, RLE, LLE, Face - Cardiac Rhythm: Regular - Pulmonary Breath Sounds: bilateral Clear Anesthesia Assess/Plan ASA Score: 2 Modified Eckerty Scale for Level of Consciousness: Cooperative, oriented, and tranquil Anesthetic Plan: General (pt refuses spinal or fascia iliaca block, r/b/a of GA discussed, questions answered, consent obtained) Monitoring Plan: Standard Monitors Recovery Plan: PACU
--- NOTE | 2017-11-02 16:18 | History & Physical Report ---
Date of Encounter: 11/02/17 Time of Encounter: 16:18 24 Hour HP Update - Instructions Instructions: If the History and Physical is less than 30 days old and was completed prior to A.M. admission and or procedure and has NOT been updated on calendar day of procedure please complete this update prior to performing procedure. - Update Patient reports changes in Medical Condition: No Changes in examination, assessment, or condition: No Changes in Medication: No Preop tests/diagnostics Reviewed: Yes Surgery Remains Indicated: Yes Consent for Planned Operative Procedure(s) Verified: Yes - Pre-Operative Checklist Preoperative Checklist Indicated: No Prophylactic Antibiotic Ordered: Yes Is VTE Prophylaxis Indicated?: Yes
[2017-11-02] MEDS ORDERED: *HR* Propofol 200 MG/20 ML VIAL IVP ONE (17:13)
[2017-11-02] MEDS ORDERED: Dexamethasone 4 MG/ML VIAL ONE (17:13)
[2017-11-02] MEDS ORDERED: *HR* FentaNYL (PF) 100 MCG/2 ML VIAL ONE ×2 (17:13→18:05)
[2017-11-02] MEDS ORDERED: Lidocaine -MPF 2% 2 ML VIAL ONE (17:13)
[2017-11-02] MEDS ORDERED: *HR* Midazolam HCl 2 MG/2 ML VIAL ONE (17:13)
[2017-11-02] MEDS ORDERED: *HR* Succinylcholine 200 MG/10 ML VIAL IVP ONE (17:13)
[2017-11-02] MEDS ORDERED: Ondansetron 4 MG/2 ML VIAL ONE (17:13)
[2017-11-02] MEDS ORDERED: Lidocaine -MPF 4% 5 ML AMPUL ONE (17:13)
[2017-11-02] MEDS ORDERED: Ethanol\\Acetic Acid\\Na Ace\\Ben 1,000 ML IRRIG.SOLN IR ONE (17:15)
[2017-11-02] MEDS ORDERED: *HR* Promethazine 25 MG/ML VIAL IVP PRN (18:03)
[2017-11-02] MEDS ORDERED: MORPHINE SUL Oral CONC 10 MG/0.5 ML ORAL.SYG SL PRN (18:03)
[2017-11-02] MEDS ORDERED: *HR* OxyCODONE Immed Rel 5 MG TABLET PO PRN ×2 (18:03→21:16)
[2017-11-02] MEDS ORDERED: *HR* Labetalol 100 MG/20 ML MDV IVP PRN (18:03)
[2017-11-02] MEDS ORDERED: *HR* PHENYLEPHRINE 1,000 MCG/10 ML SYRINGE IVP ONE (19:02)
[2017-11-02] MEDS ORDERED: Ketorolac 30 MG/ML VIAL ONE (19:22)
--- NOTE | 2017-11-02 19:36 | Orthopedic Operative Note ---
Date of procedure: 11/02/17 Pre-op diagnosis: Left hip arthritis Post-op diagnosis: same Procedure: Procedure: Left Total Hip Replacment robotic-assisted Estimated blood loss: 200 cc Hardware: Metal and polyethylene replacement. Kati DM Cup: 56 cup Femoral size 7 stem Head: 4 head with Radha Procedural Notes: Grade 4 arthritic changes femoral head acetabular socket, procedure performed with robotic assistance. Equal leg lengths as measured by CT scan preoperative Operative procedure: The patient was brought to the operating room and placed on the operating room table. After general anesthesia was administered the patient was placed in the lateral decubitus position with the operative leg up. All pressure points were padded appropriately and the head was stabilized in the neutral position. The operative extremity was prepped and draped in the sterile surgical fashion patient received IV antibiotic prior to skin incision. 3 Steinmann pins were placed in the iliac crest 3 cm proximal to the anterior superior iliac spine this was for the robotic-assisted sensor. This was done through a small 2 cm incision. A standard posterior approach is made to the operative hip, the incision was made through the skin and subcutaneous tissue hemostasis was obtained with Bovie cautery. Using careful sharp dissection the fascia was identified and incised exposing the external rotators. The femoral checkpoint was placed leg length was measured at this time utilizing robotic assistance. The external rotators were released off the greater trochanter and tagged with # 2 FiberWire suture. The capsule was T'd open and the hip was brought into internal rotation. Patient noted to have grade 4 arthritic changes femoral head. The femoral neck cut was made at the appropriate level roughly Xmm proximal to the lesser trochanter aced on preoperative templating. An anterior capsulotomy was performed for the anterior retractor. Soft tissues removed from the acetabulum. Patient noted to have grade 4 arthritic changes acetabulum. The acetabulum checkpoint was placed confirmed. The acetabulum was then mapped with robotic assistance. Based on the preoperative plan the acetabulum was reamed in one step with a 55 reamer. The 56 acetabulum was impacted with robotic assistance and 40 degrees of abduction and 11 degrees of anteversion. The hip was brought back in to internal rotation and prepared with the box bender followed by the canal finder followed by the reaming process to a size 7/ 8 broaching process in 20 degrees anteversion. It was broached up to the appropriate size 7. Trial reduction revealed leg lengths close to normal. The femoral implant was impacted in place in 20 degrees of anteversion. Trial reduction found the hip to be stable with 8 head and Radha. The trials were removed and the real implants were impacted in place. The hip was reduced, patient had robotic confirmed leg length of 5 mm longer than the contralateral side. The hip had excellent stability with forward flexion to 90 degrees adduction of 30 degrees and internal rotation of 60 degrees. The hip had no shuck. The hips after 2 minutes with a antibacterial solution. It was irrigated out with 2 L of pulse irrigation. The checkpoints were removed, Steinmann pins were removed. The hip was closed by the PA. The deep tissue was irrigated and closed deep with #1 PDS suture superficially with 0 PDS suture and skin was closed with Dermabond and zip tie. The patient was placed in a sterile dressing and abduction pillow. The patient was extubated and transferred to the recovery room in stable condition. Anesthesia: GETConnie Surgeon: Anthony Perez Was there an social research assistant present: Yes Cigar Patcher: Yady Mak Estimated blood loss (cc): 200 Condition: stable Disposition: PACU
[2017-11-02 20:37] LABS: Hematocrit 30.4 % (35.3-44.9)
[2017-11-02 20:40] LABS: Hemoglobin 9.8 g/dL (11.5-15.4)
--- NOTE | 2017-11-02 21:02 | Anesthesia Evaluation Post Op ---
Date of Encounter: 11/02/17 Time of Encounter: 21:01 - Vital Signs Vital Signs: Vital Signs Temperature 97.8 F 11/02/17 20:02 Pulse Rate 83 11/02/17 20:02 Respiratory Rate 16 11/02/17 20:02 Blood Pressure 139/60 11/02/17 20:02 O2 Sat by Pulse Oximetry 96 11/02/17 20:02 Temperature 98.0 F 11/02/17 20:42 Pulse Rate 67 11/02/17 20:52 Respiratory Rate 18 11/02/17 20:52 Blood Pressure 138/69 11/02/17 20:52 O2 Sat by Pulse Oximetry 98 11/02/17 20:52 - Lungs Lungs: Clear Ascult./Percussion - Airway Airway: Non-obstructed - Cardiovascular Regular Rate - Mental Status Mental Status: Alert & Oriented, Answers Appropriately - Pain Pain Scale: 2 Pain Scale used: Numeric (1 - 10) - Nausea Vomiting Nausea Vomiting: Not Present - Hydration Hydration: Tolerates oral liquids, Ice chips, Has not voided - Discharge PostOp Status: Transfer Patient to floor
[2017-11-02] MEDS ORDERED: Ondansetron 4 MG/2 ML VIAL IVP PRN (21:16)
[2017-11-02] MEDS ORDERED: Temazepam 15 MG CAPSULE PO PRN (21:16)
[2017-11-02] MEDS ORDERED: *HR* OxyCODONE/APAP 5/325 TABLET PO PRN (21:16)
[2017-11-02] MEDS ORDERED: MOM Conc 10 ML UD.LIQ PO PRN (21:16)
[2017-11-02] MEDS ORDERED: Naloxone 0.4 MG/ML INJ IVP PRN (21:16)
[2017-11-02] MEDS ORDERED: Cholecalciferol (D-3) 1,000 UNIT TABLET PO SCH (21:16)
[2017-11-02] MEDS ORDERED: traMADol 50 MG TABLET PO PRN (21:16)
[2017-11-02] MEDS ORDERED: Sennosides 8.6 MG TABLET PO PRN (21:16)
[2017-11-02] MEDS: Ibuprofen 600 MG TABLET PO SCH (23:12)
[2017-11-02] MEDS: Ascorbic Acid 500 MG TABLET PO SCH (23:12)
[2017-11-03] MEDS: CeFAZolin Pre 2,000 MG/100 ML 2,000 MG/100 ML BAG IVPB SCH ×2 (00:31→08:06)
[2017-11-03 02:24] LABS: Hematocrit 29.7 % (35.3-44.9); Hemoglobin 9.3 g/dL (11.5-15.4)
[2017-11-03 02:47] LABS: BUN/Creatinine Ratio 20 (6-26); Blood Urea Nitrogen 17 mg/dL (8-23); Calcium 8.3 mg/dL (8.6-10.3); Carbon Dioxide 23 mEq/L (23-29); Chloride 107 mEq/L (98-107); Glucose 150 mg/dL (70-105); Osmolality,Calculated 286 (280-300); Potassium 4.6 mEq/L (3.5-5.1); Sodium 136 mEq/L (136-145); eGFR For African Americans > 60 (> 60); eGFR For Non-African Americans > 60 (> 60)
--- NOTE | 2017-11-03 06:24 | Orthopedics Progress Note ---
Date of Encounter: 11/03/17 Time of Encounter: 06:23 - Assessment and Plan (1) Anxiety Current Visit: No Status: Chronic (2) History of skin cancer Current Visit: No Status: Chronic (3) GERD (gastroesophageal reflux disease) Current Visit: No Status: Chronic Qualifiers: Esophagitis presence: esophagitis presence not specified Qualified Code(s) : K21.9 - Gastro-esophageal reflux disease without esophagitis (4) Tobacco dependence Current Visit: No Status: Chronic (5) Status post total hip replacement, right Current Visit: No Status: Acute (6) Arthritis of left hip Current Visit: No Status: Chronic (7) History of total left hip arthroplasty Current Visit: No Status: Acute (8) Acute blood loss anemia Current Visit: No Status: Acute Subjective Interval history: Patient was seen this morning doing well without complaints. Afebrile vital signs stable. Operative extremity: Neurovascularly intact Dressing clean dry and intact Calves nontender Assessment and plan: Continue with postoperative care Hemoglobin 9.3 Objective Vital signs: Vital Signs Temp Pulse Resp BP Pulse Ox 11/03/17 03:15 98.4 F 66 18 101/56 98 11/02/17 22:45 97.6 F 83 16 114/72 98 11/02/17 21:45 98.0 F 80 18 120/60 94 11/02/17 21:15 98.3 F 79 18 133/61 96 11/02/17 20:52 67 18 138/69 98 11/02/17 20:42 98.0 F 67 20 129/70 100 11/02/17 20:32 66 20 127/58 96 11/02/17 20:22 73 20 131/52 94 11/02/17 20:12 73 18 119/50 94 11/02/17 20:02 97.8 F 83 16 139/60 96 Intake and Output 11/02/17 11/02/17 11/03/17 15:59 23:59 07:59 Intake Total 240 / 240 0 / 0 Output Total 500 / 500 300 / 300 Balance -260 / -260 -300 / -300 Intake: Oral 240 / 240 0 / 0 Output: Urine 300 / 300 300 / 300 Estimated Blood Loss 200 / 200 Other: Weight 72.121 kg - Labs CBC & BMP: 11/03/17 01:30 11/03/17 01:30 Labs: Abnormal lab results Hgb 9.3 g/dL (11.5-15.4) L 11/03/17 01:30 Hct 29.7 % (35.3-44.9) L 11/03/17 01:30 Glucose 150 mg/dL (70-105) H 11/03/17 01:30 Calcium 8.3 mg/dL (8.6-10.3) L 11/03/17 01:30 - VTE Documentation of Mechanical Device: Venous foot pump, device Consult Discharge Plan - Plan Referrals: Deny Javed MD [Primary Care Provider] -
[2017-11-03] MEDS ORDERED: *HR* Enoxaparin 30 MG/0.3 ML SYRINGE SQ SCH (07:45)
[2017-11-03] MEDS: Ibuprofen 600 MG TABLET PO SCH (08:05)
[2017-11-03] MEDS: Ascorbic Acid 500 MG TABLET PO SCH (08:05)
[2017-11-03] MEDS ORDERED: Multivit/Ca/Min/Fe/FA 1 TAB TABLET PO SCH (09:00)
[2017-11-03 10:36] VITALS: BP 116/70
--- NOTE | 2017-11-03 12:20 | Event Note ---
Date of Encounter: 11/03/17 Time of Encounter: 12:19 PCR - POD#1 - Left THR Patient discharged home in stable condition
== END 2017-11-03 13:45 | disposition home or self-care (01) | DRG 470 ==
LOC: SAMDAY 14:32 → 3NENU 21:13
PROVIDERS: ADMIT Orthopaedic Surgery; ATTEND Orthopaedic Surgery